=== PATIENT | male | born 1985 | race Caucasian/White ===

== ENCOUNTER 2017-07-14 09:35 | Emergency (ER) | payer SELFPAY ==
--- NOTE | 2017-07-14 11:24 | UC ---
Dental HPI - HPI Summary HPI Summary: 31 year old male with left jaw swelling . Left facial swelling started last night; pt has left lower tooth cavity; pt have allergies. NON SMOKER. no chewing tobacco. had sinus infection 3 days ago and now with tooth pain and swelling. to see his dentist this week they are trying to squeeze him in . no problems swallowing. no fever. pain mild. dental swelling x 24 hours. [ End ] - History of Current Complaint Chief Complaint: [employer] Stated Complaint: LEFT JAW SWELLING Time Seen by Provider: 07/14/17 11:16 Hx Obtained From: Patient Onset/Duration: Sudden Onset Severity: Moderate Pain Intensity: 2 Related History: Previous Dental Care on Same Tooth, Swelling - Allergies/Home Medications Allergies/Adverse Reactions: Allergies Allergy/AdvReac Type Severity Reaction Status Date / Time environmental Allergy Sneezing Uncoded 07/14/17 10:48 Home Medications: Home Medications Acetaminophen [Acetaminophen Extra Strength] 500 mg PO ONCE PRN 07/14/17 [ History Confirmed 07/14/17] Loratadine 10 mg PO DAILY PRN 07/14/17 [History Confirmed 07/14/17] PMH/Surg Hx/FS Hx/Imm Hx Previously Healthy: Yes - Surgical History Surgical History: Yes Surgery Procedure, Year, and Place: ear tubes as infant - Social History Occupation: Employed Full-time Lives: With Family Alcohol Use: Rare Substance Use Type: None Smoking Status (MU): Never Smoked Tobacco Review of Systems ENT: Dental Pain Is Patient Immunocompromised?: No All Other Systems Reviewed And Are Negative: Yes Physical Exam Triage Information Reviewed: Yes Appearance: Well-Appearing, No Pain Distress, Well-Nourished Vital Signs: Initial Vital Signs Temp 99.4 F 07/14/17 10:52 Pulse 85 07/14/17 10:52 Resp 20 07/14/17 10:52 BP 126/89 07/14/17 10:52 Pulse Ox 98 07/14/17 10:52 Vital Signs Reviewed: Yes Eyes: Positive: Conjunctiva Clear ENT: Positive: Normal ENT inspection Dental: Positive: Percussion Tenderness @, Gross Decay/Caries @, Abscess @ Neck exam: Normal Neck: Positive: Supple, Nontender Respiratory Exam: Normal Cardiovascular Exam: Normal Musculoskeletal Exam: Normal Neurological Exam: Normal Psychological Exam: Normal Skin Exam: Normal Dental Complaint Course/Dx - Course Course Of Treatment: no fever. no chills. appears to be dental abscess and to see dentist CLAUDIA and if any concerns, or fever, then RTO or go to ED - Differential Dx/Diagnosis Differential Diagnosis/Dx: Dental Abscess, Dental Caries, Fractured Tooth, Odontogenic Pain, Peridontic Disease, Peritonsillar Abcess, TMJ Syndrome Provider Diagnoses: Dental abscess Discharge - Sign-Out/Discharge Documenting (check all that apply): Discharge - Discharge Plan Condition: Good Disposition: HOME Prescriptions: Amoxicillin PO (*) [Amoxicillin 500 MG CAP*] 500 mg PO TID 10 Days #30 cap Patient Education Materials: Dental Abscess (ED) Referrals: Milagros Sy PA [Primary Care Provider] - 3 Days (PLEASE ENSURE YOU FOLLOW UP WITH YOUR DENTIST) - Billing Disposition and Condition Condition: GOOD Disposition: HOME Images Head: 1 - swelling and tenderness to palpation Dental: 1 - dental caries with gum swelling
== END 2017-07-14 11:41 | disposition home or self-care (01) ==
LOC: UCCORT 09:35
DX: K04.7 Periapical abscess without sinus (principal)
CPT/HCPCS: 99202; G0463